=== PATIENT | male | born 1965 | race Caucasian/White ===

== ENCOUNTER 2020-07-23 14:27 | Emergency (ER) | payer MEDICAID ==
[~2020-07-23] VITALS: Ht 167.6 cm; Wt 77.0 kg
[~2020-07-23 14:27] MED LIST: LACT10SO7 MT; OMEP40CA12 MT; PROP10TA10 MT; SUCR1TAB MT; THIA100T72 PO
[2020-07-23 18:09] VITALS: BP 110/82
== END 2020-07-23 18:09 | disposition home or self-care (01) ==
LOC: ER 14:34
DX: R18.8 Other ascites (principal); K74.60 Unspecified cirrhosis of liver; R06.82 Tachypnea, not elsewhere classified
CPT/HCPCS: 93005; 99283

== ENCOUNTER 2020-07-24 10:02 | Emergency (ER) | payer MEDICAID ==
[~2020-07-24] VITALS: Ht 167.6 cm; Wt 80.0 kg
[2020-07-24 12:13] LABS: BASOPHILS % 0.3 % (0.0-2.0); EOSINOPHILS % 1.3 % (0.0-5.0); HEMOGLOBIN. 7.9 g/dL (14.0-18.0); LYMPHOCYTES % 26.9 % (20.0-50.0); MEAN CORPUSCULAR HEMOGLOBIN 32.1 pg (28.0-32.0); MEAN CORPUSCULAR VOLUME 97.1 fL (80.0-94.0); MEAN PLATELET VOLUME 7.2 fl (7.4-10.4); MONOCYTES % 11.3 % (2.0-8.0); NEUTROPHILS % 60.2 % (40.0-76.0); PLATELET 242 x1000/uL (130-400); RED BLOOD CELL COUNT 2.47 mill/uL (4.7-6.1); RED CELL DISTRIBUTION WIDTH 24.8 % (11.6-14.6)
[2020-07-24 12:22] LABS: INR 1.6; PARTIAL THROMBOPLASTIN TIME 40.2 sec (23.4-31.0); PROTHROMBIN TIME 16.1 sec (9.6-11.0)
[2020-07-24 12:43] LABS: PLATELET ESTIMATE NORMAL
[2020-07-24] MEDS ORDERED: SODIUM BICARBONATE 4% (2.4MEQ) 5ML VIAL IV ONE (14:05)
[2020-07-24] MEDS ORDERED: LIDOCAINE HCL 1% 20ML VIAL (Pyxis) INJ ONE (14:05)
[2020-07-24 16:42] VITALS: BP 116/77
== END 2020-07-24 16:46 | disposition home or self-care (01) ==
LOC: ER 10:22
DX: R18.8 Other ascites (principal); I49.9 Cardiac arrhythmia, unspecified; Z20.822 Contact with and (suspected) exposure to COVID-19
CPT/HCPCS: 36415; 49083; 85025; 85610; 85730; 87426; 93005; 99285; J3490; Z7610

== ENCOUNTER 2020-07-29 22:27 | Inpatient (IN) | payer MEDICAID ==
[~2020-07-29] VITALS: Ht 172.7 cm; Wt 82.0 kg
[2020-07-29] MEDS ORDERED: PANTOPRAZOLE SODIUM 40 MG/VIAL IV STA (22:49)
[2020-07-29] MEDS ORDERED: OCTREOTIDE ACETATE 50 MCG/ML 1ML IV ONE (23:00)
[2020-07-29] MEDS ORDERED: CEFTRIAXONE 1 G PREMIX 50 ML IV ONE (23:00)
[2020-07-29 23:18] LABS: MEAN CORPUSCULAR HEMOGLOBIN 31.8 pg (28.0-32.0); MEAN CORPUSCULAR VOLUME 104.5 fL (80.0-94.0); MEAN PLATELET VOLUME 6.9 fl (7.4-10.4); PLATELET 250 x1000/uL (130-400); RED BLOOD CELL COUNT 1.67 mill/uL (4.7-6.1); RED CELL DISTRIBUTION WIDTH 26.4 % (11.6-14.6)
[2020-07-29 23:20] LABS: HEMATOCRIT. 17.5 % (42.0-52.0); HEMOGLOBIN. 5.3 g/dL (14.0-18.0)
[2020-07-29 23:26] LABS: CHLORIDE 97 mEq/L (98-107)
[2020-07-29 23:30] LABS: INR 2.5; PROTHROMBIN TIME 25.5 sec (9.6-11.0)
[2020-07-29] MEDS ORDERED: DEXTROSE 50% WATER 50ML SYRINGE IV ONE (23:45)
[2020-07-30] MEDS ORDERED: SODIUM CHLORIDE 0.9% 1,000 ML IV ONE (00:15)
[2020-07-30 00:22] LABS: PLATELET ESTIMATE NORMAL
[2020-07-30] MEDS ORDERED: LACTULOSE 20G/30ML UDC PO NR (01:45)
[2020-07-30 01:55] VITALS: BP 50/15
[2020-07-30] MEDS ORDERED: SODIUM CHLORIDE 0.9% 1000ML BAG (SEPSIS BOLUS) IV NR (02:45)
[2020-07-30] MEDS ORDERED: DEXTROSE 50% WATER 50ML SYRINGE IV NR (03:00)
[2020-07-30 06:10] LABS: CHLORIDE 96 mEq/L (98-107)
[2020-07-30] MEDS ORDERED: ONDANSETRON HCL 4MG/2ML INJ IV PRN (08:45)
[2020-07-30] MEDS ORDERED: SODIUM BICARBONATE 8.4% 1 MEQ/ML 50ML SYR IV SCH ×2 (08:45→12:00)
[2020-07-30] MEDS ORDERED: PANTOPRAZOLE SODIUM 40 MG/VIAL IV SCH ×2 (09:00→10:00)
[2020-07-30 09:23] LABS: HEMATOCRIT 33.7 % (42.0-52.0); HEMOGLOBIN 9.9 g/dL (14.0-18.0)
[2020-07-30] MEDS ORDERED: CEFTRIAXONE 1,000 MG in DEXTROSE 5% WATER 50 ML IV SCH ×2 (11:00→21:00)
[2020-07-30] MEDS ORDERED: NOREPINEPHRINE 8 MG in DEXT 5% WATER 242 ML IV PRN (11:15)
[2020-07-30] MEDS ORDERED: PHENYLEPHRINE 50 MG in DEXT 5% WATER 245 ML IV PRN (11:30)
[2020-07-30] MEDS ORDERED: ALBUMIN HUMAN 25GM/100ML (25%) IV SCH (12:00)
[2020-07-30] MEDS ORDERED: VASOPRESSIN 20 UNIT in SODIUM CHLORIDE 0.9% 99 ML IV PRN (12:00)
[2020-07-30] MEDS ORDERED: SODIUM BICARBONATE 150 MEQ in DEXTROSE 5% WATER 1,000 ML IV SCH (12:00)
[2020-07-30] MEDS ORDERED: MORPHINE SULFATE 4 MG/ML CPJ (NOT FOR IM USE) IV NR (12:15)
[2020-07-30] MEDS ORDERED: MORPHINE SULFATE 4 MG/ML CPJ (NOT FOR IM USE) IV PRN (12:15)
[2020-07-30] MEDS ORDERED: LACTULOSE 20G/30ML UDC PO SCH ×2 (14:00)
[2020-07-30 21:30] VITALS: BP 44/19
== END 2020-07-31 02:44 | disposition expired | DRG 720 ==
LOC: ER 22:27 → MICUSO 23:57 → ENRESERV 07-30 08:27 → 5EST 07-30 09:05 → MICUSO 07-30 09:12 → 6EST 07-30 21:33 → UNDODISIN 07-31 00:01
PROVIDERS: ADMIT Internal Medicine; ATTEND Internal Medicine
PROC: 30233N1 Transfusion of Nonautologous Red Blood Cells into Peripheral Vein, Percutaneous Approach (ICD-10-PCS; principal; 2020-07-30)
DX: A41.9 Sepsis, unspecified organism (principal); J96.01 Acute respiratory failure with hypoxia; E43 Unspecified severe protein-calorie malnutrition; G93.41 Metabolic encephalopathy; K85.90 Acute pancreatitis without necrosis or infection, unspecified; R65.21 Severe sepsis with septic shock; N17.0 Acute kidney failure with tubular necrosis; E72.20 Disorder of urea cycle metabolism, unspecified; D64.9 Anemia, unspecified; D68.9 Coagulation defect, unspecified; E11.649 Type 2 diabetes mellitus with hypoglycemia without coma; E87.1 Hypo-osmolality and hyponatremia; E87.2 Acidosis; E87.5 Hyperkalemia; E87.8 Other disorders of electrolyte and fluid balance, not elsewhere classified; Z66 Do not resuscitate; Z51.5 Encounter for palliative care; I85.11 Secondary esophageal varices with bleeding; K31.9 Disease of stomach and duodenum, unspecified; K44.9 Diaphragmatic hernia without obstruction or gangrene; K70.31 Alcoholic cirrhosis of liver with ascites; K72.90 Hepatic failure, unspecified without coma; K76.6 Portal hypertension; F10.11 Alcohol abuse, in remission; Z68.27 Body mass index [BMI] 27.0-27.9, adult; Z79.899 Other long term (current) drug therapy; Z82.49 Family history of ischemic heart disease and other diseases of the circulatory system
CPT/HCPCS: 36415; 71045; 80053; 82140; 83605; 83735; 84484; 85014; 85018; 85025; 86850; 86900; 86920; 93005; 99291; C9113; J0696; J2270; J2354; J2370; J3490; J7030; J7060; J7070; P9016; P9047